=== PATIENT | male | born 2005 | race Caucasian/White ===

== ENCOUNTER 2024-04-08 08:35 | Outpatient (REF) | payer OTHER, SELFPAY ==
[2024-04-08 10:49] LABS: Hematocrit 44.1 % (42.0-52.0); Mean Corpuscular Hemoglobin 28.8 pg (27.0-33.0); Mean Corpuscular Volume 84.6 fL (80.0-98.0); Mean Platelet Volume 9.7 fL (9.4-12.4); Platelet Count 270 X10*3/uL (160-400); Red Blood Count 5.21 X10*6/uL (4.60-5.80); Red Cell Distribution Width 12.7 % (11.0-16.0); White Blood Count 6.8 X10*3/uL (4.8-10.8)
[2024-04-08 11:19] LABS: Alanine Aminotransferase 127 U/L (0-40); Albumin Level 4.6 g/dL (3.5-5.0); Alkaline Phosphatase 87 U/L (39-117); Anion Gap 13 (12-20); Aspartate Amino Transferase 50 U/L (5-37); Bilirubin Total 0.8 mg/dL (0.0-1.0); Blood Urea Nitrogen 12 mg/dL (9-16); Calcium 9.8 mg/dL (8.4-10.2); Carbon Dioxide 24 mmol/L (22-29); Chloride 106 mmol/L (96-108); Estimated Glomerular Filt Rate > 60; Glucose Fasting 90 mg/dL (60-99); Potassium 4.3 mmol/L (3.3-5.1); Sodium 139 mmol/L (135-145); Total Protein 7.6 g/dL (6.5-8.0)
== END 2024-04-08 08:36 | disposition home or self-care (01) ==
LOC: HO.LAB 08:35
PROVIDERS: PCP Physician Assistant; Visit Provider Physician Assistant
DX: Z13.1 Encounter for screening for diabetes mellitus (principal); F90.9 Attention-deficit hyperactivity disorder, unspecified type; E66.813 Obesity, class 3; F84.0 Autistic disorder; Z23 Encounter for immunization
CPT/HCPCS: 36415; 80053; 85027; 90471; 90656; 96127

== ENCOUNTER 2024-04-08 08:35 | Outpatient (AMB) | payer OTHER, SELFPAY ==
--- NOTE | 2024-04-08 08:54 | MHC.PC.OV ---
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 Transferring care from Jasvir Mares ([facility] of [facility]. Medical records have not been requested and have not received. 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 Patient has previous PCP was at a pediatrics office. Patient has a past medical history significant for ADHD, autism spectrum disorder, seasonal allergies and obesity. Currently working at a local [employer] and plans on getting into [employer] HC seeing ADHD: Was treated for ADHD as a child though felt it was not effective form over time. He feel is able to handle his inattentiveness on his own. Class 3 obesity: He does understand his BMI is over 40 will work on being more physically active and adapting to better eating habits to reduce his weight [facility] Medical History (Updated 04/08/24 @ 13:30 by Josh Calderon PA-C) ADHD Surgical History No pertinent past surgical history Social History (Updated 04/08/24 @ 09:29 by Josh Calderon PA-C) Housing: House Alcohol intake: never Patient Tobacco Use Status: Never used Tobacco e-Cigarette/Vaping Use: Never Used Second Hand Smoke Exposure: No service: No Current occupational status: employed and student Current occupation: [employer]- Looking to go to [employer] Cognitive needs: No Hearing needs: No Vision needs: No Questionnaire PHQ-9 Over the last 2 weeks, how often have you been bothered by any of the following problems? 1. Little interest or pleasure in doing things: not at all 2. Feeling down, depressed, or hopeless: not at all 3. Trouble falling or staying asleep, or sleeping too much: not at all 4. Feeling tired or having little energy: not at all 5. Poor appetite or overeating: several days 6. Feeling bad about yourself - or that you are a failure or have let yourself or your family down: not at all 7. Trouble concentrating on things, such as reading the newspaper or watching television: not at all 8. Moving or speaking so slowly that other people could have noticed. Or the opposite - being so fidgety or restless that you have been moving around a lot more than usual: not at all 9. Thoughts that you would be better off or of hurting yourself in some way: not at all Total score: 1 Depression Screening Interpretation: Positive Depression Screening Done: Yes Source: Developed by Drs. Bipin Healy, Marj Maynard, Philippe Arias and colleagues, with an educational aj from [employer]. Thrive Questionnaire Date Thrive assessed: 04/08/24 I am a: Patient What is your living situation today?: I have a steady place to live Within the past 12 months, did the food you bought not last and you didn't have the money to get more?: Never true Within the past 12 months, did you worry whether your food would run out before you got money to buy more?: Never true Do you have trouble paying for medicines?: No Do you have trouble getting transportation to medical appointments?: No Do you have trouble paying your heating and electricity bill?: No Do you have trouble taking care of your child, family member or friend?: No Do you have trouble with day-to-day activities such as bathing, preparing meals, shopping, managing finances, etc.?: No Are you currently unemployed and looking for a job?: No Are you interested in more education?: Yes Please select the resources that you would like help with: None Currently or been in a relationship where the following occur: No concerns reported THRIVE Score: 0 AUDIT C Alcohol Use Questionnaire (AUDIT-C) 1. How often do you have a drink containing alcohol?: Never Total Score: 0 DHARA-7 AMB Questionnaire DHARA-7 Date DHARA - 7 assessed: 04/08/24 Feeling nervous, anxious, or on edge: 0 = Not at all Not being able to stop or control worryin = Not at all Worrying too much about different things: 0 = Not at all Trouble relaxin = Not at all Being so restless that it is hard to sit still: 0 = Not at all Becoming easily annoyed or irritable: 0 = Not at all Feeling afraid as if something awful might happen: 0 = Not at all Total DHARA-7 score (0-4 normal; 5-9 mild; 10-14 moderate; 15-21 severe): 0 Source: Developed by Drs. Bipin Healy, Marj Maynard, Philippe Arias and colleagues, with an educational aj from [employer]. DHARA-7 Assessment Billing DHARA-7 Assessment Tool: DHARA-7 Assessment 93776 Review of Systems Const Denies headache(s) Eyes Denies loss of vision ENT Denies vertigo, Denies dizziness, Denies headache(s) and Denies sore throat Card Denies chest pain, Denies leg edema and Denies lightheadedness Resp Denies cough, Denies hemoptysis and Denies wheezing GI Denies abdominal pain, Denies melena, Denies constipation, Denies diarrhea and Denies vomiting Denies dysuria, Denies urinary frequency and Denies urinary urgency Musc Denies arthralgias, Denies joint swelling, Denies numbness and Denies tingling Neuro Denies Abnormal speech present, Denies behavioral changes, Denies vertigo, Denies dizziness, Denies headache(s), Denies loss of vision, Denies memory loss, Denies numbness and Denies tingling Psych Denies anxiety, Denies behavioral changes, Denies depression, Denies memory loss and Denies panic attacks Bryce/Lymph Denies easy bleeding and Denies easy bruising Aller/Immun Denies wheezing Physical exam (Primary Care) Vital Signs: Last Vital Signs Pulse 97 04/08/24 09:11 BP 130/90 H 04/08/24 09:11 Pulse Ox 98 04/08/24 09:11 Oxygen Delivery Method Room Air 04/08/24 09:11 BMI result Body Mass Index 41.9 BMI Assessment/Plan discussion: High BMI High, discussed plan: lifestyle, weight reduction, dietary and physical activity Tobacco/Smoking Status: Tobacco use Status Tobacco use date assessed 04/08/24 04/08/24 08:56 Patient Tobacco Use Status Never used Tobacco 04/08/24 09:29 e-Cigarette/Vaping Use Never Used 04/08/24 09:29 PHQ-9: PHQ-9 Score PHQ-9: Total score 1 04/08/24 09:36 Depression Screening Interpretation: Positive Thrive Assessment: Date of Thrive Assessment Date Thrive assessed 04/08/24 04/08/24 08:56 Currently or been in a relationship where the following occur: No concerns reported Const General: healthy appearing, no acute distress, alert and awake Nutritional Appearance: well nourished Orientation/consciousness: oriented to person, oriented to place and oriented to time HENMT Ears: TM's normal bilaterally General nose exam: Normal nasal mucous membranes and turbinates present Eyes Conjunctivae: conjunctivae normal Sclerae: sclerae normal Pupils: Equal, round and reactive pupils present Neck Neck: Yes no lymphadenopathy and Yes no JVD Thyroid: Thyroid normal Carotids: no bruits Resp Effort & Inspection: normal respiratory effort and not tachypneic Auscultation: no crackles, no rales, no rhonchi and no wheezes Cardio Rate: regular rate Rhythm: regular rhythm Heart sounds: no murmurs and normal S1 and S2 GI Palpation (GI): Soft to palpation, nontender, no hepatomegaly and no splenomegaly Auscultation: normal bowel sounds Skin General skin exam: no rashes or lesions noted and dry skin Neuro General: oriented to person, oriented to place and oriented to time Cranial nerves: Yes Equal, round and reactive pupils present Speech: No Abnormal speech present Gait exam (Neuro): Normal gait present Motor exam (neuro): no tremor noted Extrem Right upper extremity: full ROM Left upper extremity: full ROM Right lower extremity: full ROM; no edema Left lower extremity: full ROM; no edema Psych Mental Status: mental status grossly normal Speech and movement: Normal speech and movement present Affect: normal affect Attitude: cooperative Thought process: Normal thought process present Office Procedures Flu Questionnaire Does the patient have a severe egg allergy?: No Does the patient have severe life threatening allergies?: No Does the patient have a fever or illness today?: No Has the patient ever had Guillain-Bartley Syndrome?: No Has the patient ever had any past reaction to a flu shot?: No Immunizations Fluarix Triv [id number] (PF) 45 mcg (15 mcg x 3)/0.5 mL IM syringe Performing Provider: Josh Calderon PA-C [facility] Administered by: TIMOTHY Littlejohn on 04/08/24 09:26 Dose Route Admin Location Dispensed Lot Number Expiration Date NDC Evening Anchor 0.5 mL IM Left Deltoid 0.5 mL [id number] 11/29/24 [id number] [employer] VIS Given Date VIS Provided VIS Publication Date 04/08/24 Single Vaccine 21 Eligibility Eligibility Date Funding Source Not [facility] Eligible 04/08/24 Private Coding Level of Care Code New Pt Level 4 (53579) Diagnoses Attention deficit hyperactivity disorder (ADHD), predominantly inattentive type F90.0 Attention deficit-hyperactivity disorder type: predominantly inattentive Screening for diabetes mellitus (DM) Z13.1 Class 3 obesity E66.813 Autism spectrum disorder F84.0 Additional Codes DHARA-7 Assessment Billing - DHARA-7 Assessment Tool: DHARA-7 Assessment 41178 ([id number]) Assessment & Plan Assessment & Plan (1) ADHD: Code(s): F90.9 - Attention-deficit hyperactivity disorder, unspecified type Category: Medical Qualifiers: Attention deficit-hyperactivity disorder type: predominantly inattentive Qualified Code(s): F90.0 - Attention-deficit hyperactivity disorder, predominantly inattentive type Plan: Patient diagnosed with ADHD as a child and was on medication in the past though felt it stopped working. He feels at this point he does not need medication in his doing well without it. (2) Screening for diabetes mellitus (DM): Code(s): Z13.1 - Encounter for screening for diabetes mellitus Category: Medical Plan: As per HPI (3) Class 3 obesity: Code(s): E66.813 - Obesity, class 3 Category: Medical Plan: Patient does understand his BMI is over 40 will work on being more physically active and adapting to better eating habits to reduce his weight (4) Autism spectrum disorder: Code(s): F84.0 - Autistic disorder Category: Medical Plan: As per HPI, seems to be fairly high functioning. Continues to have a job at a local [employer]. He plans on going into [employer] Orders: Orders [facility]. Panel Fast Today Z13.1 - Encounter for screening for diabetes mellitus Influenza [id number] Immunization Today Z23 - Encounter for immunization Complete Blood Count no Diff Today Z13.1 - Encounter for screening for diabetes mellitus
[2024-04-08 09:11] VITALS: BP 130/90; PULSE 97; O2SAT 98; BMI 41.9
== END 2024-04-08 09:36 | disposition home or self-care (01) ==
LOC: HO.HMCH 08:36
PROVIDERS: PCP Physician Assistant; Visit Provider Physician Assistant
DX: F90.0 Attention-deficit hyperactivity disorder, predominantly inattentive type (principal); Z68.41 Body mass index [BMI] 40.0-44.9, adult; E66.813 Obesity, class 3; Z13.1 Encounter for screening for diabetes mellitus; F84.0 Autistic disorder

== ENCOUNTER 2024-04-21 10:13 | Outpatient (REF) | payer OTHER, SELFPAY ==
--- NOTE | ~2024-04-21 | US_ITS ---
EXAMINATION: US ABDOMEN COMPLETE CLINICAL INFORMATION: Elevated liver enzymes. Evaluate for steatosis. COMPARISON: None available. TECHNIQUE: Real-time imaging of the abdominal viscera. FINDINGS: PANCREAS: The visualized pancreatic head and body are unremarkable. The tail is obscured by overlying bowel gas. ABDOMINAL AORTA: The proximal, mid, and distal segments are normal in caliber. INFERIOR VENA CAVA: Visualized portions are normal. LIVER: Enlarged measuring up to 21 cm. The liver contour is normal. Increased hepatic parenchymal echogenicity. No focal hepatic lesion. There is no intrahepatic biliary duct dilatation seen. GALLBLADDER: Unremarkable. The gallbladder is physiologically distended without evidence of stones, sludge, polyps, wall thickening or pericholecystic fluid. COMMON BILE DUCT: Normal in caliber measuring 0.3 cm in diameter. RIGHT KIDNEY: Normal. No hydronephrosis. No renal calculi or focal parenchymal lesions. The kidney measures 11.2 cm in maximum dimension. LEFT KIDNEY: Normal. No hydronephrosis. No renal calculi or focal parenchymal lesions. The kidney measures 11.6 cm in maximum dimension. SPLEEN: Normal. The spleen measures 12.6 cm in maximum dimension. FREE FLUID: None. US/US abdomen complete IMPRESSION: Mild hepatomegaly. Increased hepatic parenchymal echogenicity, which can be seen in the setting of steatosis. Underlying hepatocellular disease cannot be excluded. No hepatic parenchymal lesion or biliary ductal dilatation. Electronically signed by: Ady Perdomo MD 04/21/2024 11:40 AM [facility]
== END 2024-04-21 10:14 | disposition home or self-care (01) ==
LOC: HO.US 10:13
PROVIDERS: PCP Physician Assistant; Visit Provider Physician Assistant
DX: R74.8 Abnormal levels of other serum enzymes (principal)
CPT/HCPCS: 76700

== ENCOUNTER 2024-10-06 13:07 | Outpatient (AMB) | payer OTHER, SELFPAY ==
[2024-10-06 13:17] VITALS: BP 128/90; PULSE 110; TEMP 36.3; O2SAT 98; BMI 42.4
--- NOTE | 2024-10-06 13:17 | MHC.PC.OV ---
Vital Signs 10/06/24 13:17 Height 5 ft 8.5 in Weight 283 lb 4 oz BMI 42.4 BP 128/90 H Blood Pressure Location Lt brachial Position Sitting Pulse 110 H Pulse Source Pulse Oximeter Temp 97.3 F Temp Source Temporal Artery Scan Pulse Oximetry (%) 98 Oxygen Delivery Method Room Air Intake Visit Reasons: PE Intake Note: Patient is here today for a physical. Cash Reconciliation Specialist Required: No Accompanied by: Self / Same As Patient Allergies Seasonal Allergies Allergy (Intermediate, Verified 10/06/24 13:42) Runny Nose Medication List - Last Reconciled 10/06/24 by Josh Calderon PA-C No Known Home Meds Tobacco use date assessed: 10/06/24 Dental Screening Dental Screen Date: 10/06/24 Did you have a dental visit in the last 12 months?: Yes Did you have a dental problem in the last 6 months where you did not have access to dental care?: No Was dental information given to patient?: Patient has dentist HPI PE HPI Details Patient is a 19-year-old male here today for an annual physical. . Patient has a past medical history significant for ADHD, autism spectrum disorder, class 3 obesity, seasonal allergies and obesity. 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 We did do an ultrasound in the fall of 2023 of his abdomen which did show evidence of hepatomegaly and fatty liver disease. Liver enzymes slightly elevated. ADHD: Was treated for ADHD as a child though felt it was not effective form over time. He feel is able to handle his inattentiveness on his own. Class 3 obesity: Does admit to dietary indiscretion over last few months. Has gained weight since last office visit. He does understand his BMI is over 40 will work on being more physically active and adapting to better eating habits to reduce his weight. VAccine: needs up to date Tdap. Otherwise up-to-date with COVID and flu vaccines Laboratory Tests 04/08/24 10:13 Fasting Glucose 90 AST 50 H ALT 127 H PFSH Medical History ADHD Surgical History No pertinent past surgical history Social History Housing: House Alcohol intake: never Patient Tobacco Use Status: Never used Tobacco e-Cigarette/Vaping Use: Never Used Second Hand Smoke Exposure: No service: No Current occupational status: employed and student (Currently at [employer]) Current occupation: [employer] Cognitive needs: No Hearing needs: No Vision needs: No Questionnaire PHQ-9 Over the last 2 weeks, how often have you been bothered by any of the following problems? 1. Little interest or pleasure in doing things: not at all 2. Feeling down, depressed, or hopeless: not at all 3. Trouble falling or staying asleep, or sleeping too much: several days 4. Feeling tired or having little energy: several days 5. Poor appetite or overeating: more than half the days 6. Feeling bad about yourself - or that you are a failure or have let yourself or your family down: not at all 7. Trouble concentrating on things, such as reading the newspaper or watching television: several days 8. Moving or speaking so slowly that other people could have noticed. Or the opposite - being so fidgety or restless that you have been moving around a lot more than usual: several days 9. Thoughts that you would be better off or of hurting yourself in some way: not at all Total score: 6 Depression Screening Interpretation: Positive Depression Screening Follow-up: Existing condition Depression Screening Done: Yes 78375 - PHQ-9 Billing: Yes Source: Developed by Drs. Bipin Healy, Marj Maynard, Philippe Arias and colleagues, with an educational aj from [employer]. Thrive Questionnaire Date Thrive assessed: 10/06/24 I am a: Patient What is your living situation today?: I have a steady place to live Within the past 12 months, did the food you bought not last and you didn't have the money to get more?: Never true Within the past 12 months, did you worry whether your food would run out before you got money to buy more?: Never true Do you have trouble paying for medicines?: No Do you have trouble getting transportation to medical appointments?: No Do you have trouble paying your heating and electricity bill?: No Do you have trouble taking care of your child, family member or friend?: No Do you have trouble with day-to-day activities such as bathing, preparing meals, shopping, managing finances, etc.?: No Are you currently unemployed and looking for a job?: No Are you interested in more education?: Yes Please select the resources that you would like help with: None Currently or been in a relationship where the following occur: No concerns reported THRIVE Score: 0 AUDIT C Alcohol Use Questionnaire (AUDIT-C) 1. How often do you have a drink containing alcohol?: Monthly or less 2. How many drinks containing alcohol do you have on a typical day when you are drinking?: 1 or 2 3. How often do you have six or more drinks on one occasion?: Never Total Score: 1 DHARA-7 AMB Questionnaire DHARA-7 Date DHARA - 7 assessed: 10/06/24 Feeling nervous, anxious, or on edge: 0 = Not at all Not being able to stop or control worryin = Not at all Worrying too much about different things: 0 = Not at all Trouble relaxin = Several days Being so restless that it is hard to sit still: 0 = Not at all Becoming easily annoyed or irritable: 1 = Several days Feeling afraid as if something awful might happen: 0 = Not at all Total DHARA-7 score (0-4 normal; 5-9 mild; 10-14 moderate; 15-21 severe): 2 Source: Developed by Drs. Bipin Healy, Marj Maynard, Philippe Arias and colleagues, with an educational aj from [employer]. DHARA-7 Assessment Billing DHARA-7 Assessment Tool: DHARA-7 Assessment 61501 Review of Systems Const Denies body aches, Denies chills, Denies excessive sweating, Denies fatigue, Denies fever(s) and Denies headache(s) Eyes Denies blurry vision ENT Denies dysphagia, Denies vertigo, Denies dizziness, Denies headache(s), Denies hearing loss and Denies tinnitus Card Denies chest pain, Denies chest pain with activity, Denies syncope, Denies irregular heart rhythm and Denies dyspnea Resp Denies chest congestion, Denies cough, Denies hemoptysis, Denies dyspnea and Denies wheezing GI Denies abdominal pain, Denies melena, Denies hematochezia, Denies coffee ground emesis, Denies dysphagia, Denies diarrhea, Denies nausea and Denies vomiting Denies difficulty urinating, Denies dysuria, Denies urinary frequency, Denies urinary hesitancy and Denies urinary urgency Musc Denies arthralgias, Denies limited range of motion, Denies muscle cramps and Denies muscle weakness Skin/Breast Denies rash and Denies skin ulcer Neuro Denies Abnormal speech present, Denies confusion, Denies vertigo, Denies dizziness, Denies syncope, Denies headache(s), Denies memory loss and Denies seizure-like activity Psych Denies anxiety, Denies confusion, Denies depression, Denies memory loss, Denies panic attacks and Denies paranoia Endo Denies excessive sweating, Denies fatigue, Denies flushing, Denies polydipsia and Denies polyuria Aller/Immun Denies wheezing Physical exam (Primary Care) Vital Signs: Last Vital Signs Temp 97.3 F 10/06/24 13:17 Pulse 110 H 10/06/24 13:17 BP 128/90 H 10/06/24 13:17 Pulse Ox 98 10/06/24 13:17 Oxygen Delivery Method Room Air 10/06/24 13:17 BMI result Body Mass Index 42.4 BMI Assessment/Plan discussion: High BMI High, discussed plan: lifestyle, weight reduction, dietary and physical activity Tobacco/Smoking Status: Tobacco use Status Tobacco use date assessed 10/06/24 10/06/24 13:35 Patient Tobacco Use Status Never used Tobacco 10/06/24 13:17 e-Cigarette/Vaping Use Never Used 10/06/24 13:17 PHQ-9: PHQ-9 Score PHQ-9: Total score 6 10/06/24 13:45 Depression Screening Interpretation: Positive Depression Screening Follow-up: Existing condition Thrive Assessment: Date of Thrive Assessment Date Thrive assessed 10/06/24 10/06/24 13:29 Currently or been in a relationship where the following occur: No concerns reported Const Other: Obese General: cooperative, comfortable, no acute distress, alert and awake; No confusion Orientation/consciousness: oriented to person, oriented to place, patient oriented x3 and No confusion HENMT Head: Yes normocephalic Ears: external ears normal and TM's normal bilaterally Face and sinus: No sinus tenderness Mouth: Normal oral and palatal mucosa present and tongue normal Teeth and gingiva: dentition normal and gingiva normal Throat: Yes posterior oropharynx normal, Yes tonsils normal and Yes uvula midline Eyes Conjunctivae: conjunctivae normal Sclerae: sclerae normal Pupils: Equal, round and reactive pupils present EOM: EOMs intact bilaterally Direct Ophthalmoscopy: No no photophobia Neck Neck: Yes no lymphadenopathy, No tender and Yes no JVD Thyroid: Thyroid normal Carotids: no bruits Chest Chest palpation & inspection: no tenderness Resp Effort & Inspection: normal respiratory effort, no audible wheezes, not labored and no stridor Auscultation: no crackles, no rales, no rhonchi and no wheezes Cardio Jugular venous distension: no JVD Rate: regular rate, not bradycardic and not tachycardic Rhythm: regular rhythm Bruits: no carotid bruits Peripheral pulses: Peripheral pulses 2+ throughout GI Inspection: Yes normal to inspection, No abdominal wall ecchymosis and No visible herniation Palpation (GI): Soft to palpation, nontender, no guarding, not rigid and No hepatosplenomegaly present Auscultation: normoactive bowel sounds General: Yes no CVA tenderness Back/Spine/Pelvis Back: no CVA tenderness and No back tenderness Cervical Spine: cervical ROM normal Thoracic/Lumbar Spine: thoracic and lumbar spine normal to inspection, straight leg raise negative bilaterally, No thoraco-lumbar ROM limited and No lumbar spinal tenderness Skin Lesions: no lesions Rashes: no rashes Wounds: no wounds Neuro General: oriented to person, oriented to place, patient oriented x3, CN's II-XI intact bilaterally and No confusion Cranial nerves: Yes Equal, round and reactive pupils present and Yes Normal accommodation reflex present Cognition (Neuro): normal cognition Speech: No Abnormal speech present Gait exam (Neuro): Normal gait present Motor exam (neuro): 5/5 motor strength present throughout Extrem Right upper extremity: full ROM; no cyanosis Left upper extremity: full ROM; no cyanosis Right lower extremity: no edema Left lower extremity: no edema Psych Appearance: grossly normal Mental Status: mental status grossly normal Affect: normal affect Attitude: cooperative Thought process: Normal thought process present Immunizations Boostrix Tdap 2.5 Lf unit-8 mcg-5 Lf/0.5 mL intramuscular syringe Performing Provider: Josh Calderon PA-C Performing Location: [facility] Administered by: TIMOTHY Littlejohn on 10/06/24 13:54 Dose Route Admin Location Dispensed Lot Number Expiration Date [facility] Machinery Mechanic 0.5 mL IM Left Deltoid 0.5 mL [id number] 01/25/27 31064-822-20 [employer]LA[employer]OSMITH[employer] VIS Given Date VIS Provided VIS Publication Date 10/06/24 Single Vaccine 24 Eligibility Eligibility Date Funding Source Not [facility] Eligible 10/06/24 Private Coding Level of Care Code Est Pt Prev Care 18-39y(39785) Diagnoses Annual physical exam Z00.00 Attention deficit hyperactivity disorder (ADHD), predominantly inattentive type F90.0 Attention deficit-hyperactivity disorder type: predominantly inattentive Class 3 obesity E66.813 Autism spectrum disorder F84.0 Nonalcoholic steatohepatitis (FLORES) K75.81 Mild episode of recurrent major depressive disorder F33.0 Active/Remission status: currently active Depression Type: major depressive disorder Major depression episode severity: mild Major depression recurrence: recurrent Elevated blood pressure reading R03.0 Additional Codes DHARA-7 Assessment Billing - DHARA-7 Assessment Tool: DHARA-7 Assessment 92707 ([id number]) PHQ-9 - 87964 - PHQ-9 Billing: Yes ([id number]) Assessment & Plan Assessment & Plan (1) Annual physical exam: Code(s): Z00.00 - Encounter for general adult medical examination without abnormal findings Category: Medical Plan: As per HPI (2) ADHD: Code(s): F90.9 - Attention-deficit hyperactivity disorder, unspecified type Category: Medical Qualifiers: Attention deficit-hyperactivity disorder type: predominantly inattentive Qualified Code(s): F90.0 - Attention-deficit hyperactivity disorder, predominantly inattentive type Plan: Patient diagnosed with ADHD as a child and was on medication in the past though felt it stopped working. He feels at this point he does not need medication in his doing well without it. (3) Class 3 obesity: Code(s): E66.813 - Obesity, class 3 Category: Medical Plan: Patient does understand his BMI is over 40 will work on being more physically active and adapting to better eating habits to reduce his weight (4) Autism spectrum disorder: Code(s): F84.0 - Autistic disorder Category: Medical Plan: As per HPI, seems to be fairly high functioning. Continues to have a job at a local [employer]. He plans on going into [employer] (5) Nonalcoholic steatohepatitis (FLORES): Code(s): K75.81 - Nonalcoholic steatohepatitis (FLORES) Category: Medical Plan: Recent abdominal ultrasound showing evidence of hepatomegaly and fatty liver. Expressed the importance of weight reduction via dietary means in physical activity and patient does understand and agrees. (6) Depression: Code(s): F32.A - Depression, unspecified Category: Medical Qualifiers: Active/Remission status: currently active Depression Type: major depressive disorder Major depression episode severity: mild Major depression recurrence: recurrent Qualified Code(s): F33.0 - Major depressive disorder, recurrent, mild Plan: Patient's PHQ-9 score positive for mild depression. This seems to have been a existing condition for him. He is not interested in medication or mental health therapy at this time (7) Elevated blood pressure reading: Code(s): R03.0 - Elevated blood-pressure reading, without diagnosis of hypertension Category: Medical Plan: Noted elevated blood pressure readings today in office and at previous office visit. He will work on dietary modifications and being more physically active range of reduce his weight. Will consider antihypertensive medications if blood pressures remain above 140/90 Orders: Orders TDaP Immunization Today Z13.1 - Encounter for screening for diabetes mellitus, Z23 - Encounter for immunization
--- OUTSIDE RECORDS SUMMARY | 2024-10-06 14:20 | XMS_ITS | Encounter Summary ---
Author Organization [facility] Address [address] [place] [address] Phone Care Team Providers Care Open Hearth Furnace Operator Helper Name Role Phone Jasvir Mares MD Primary Care Provider [phone] Encounter Details Date Type Department Care Team (Late st Contact Info) Description 06/05/2009 Documentation [facility] [place] Family Medicine [address] [place], [place] [id number] Family Medicine, Physician [address], [place] [id number] Social History Tobacco Use Types Packs/Day Years Used Date Smoking Tobacco: Never Assessed Sex and Gender Information Value Date Recorded Sex Assigned at Not on file Legal Sex Male 6:09 PM EDT Gender Identity Not on file Sexual Orientation Not on file documented as of this encounter Plan of Treatment Not on file documented as of this encounter Visit Diagnoses Not on filedocumented in this encounter Care Teams Open Hearth Furnace Operator Helper Relationship Specialty Start Date End Date Jasvir Mares MD [address] [place] [address] PCP - General 10/08/17 05/16/24 documented as of this encounter
--- OUTSIDE RECORDS SUMMARY | 2024-10-06 14:20 | XMS_ITS | Encounter Summary ---
Author Organization [facility] Address [address] [place] [address] Phone Care Team Providers Care Pool Hand Name Role Phone Jasvir Mares MD Primary Care Provider [phone] Encounter Details Date Type Department Care Team (Late st Contact Info) Description 10/19/2017 Conversion Encounter [facility] [address] [place] [address] Jasvir Mares MD [address] [place] [address] Social History Tobacco Use Types Packs/Day Years [...] on filedocumented in this encounter Care Teams Pool Hand Relationship Specialty Start Date End Date Jasvir Mares MD [address] [place] [address] PCP - General 10/08/17 05/16/24 documented as of this encounter
--- OUTSIDE RECORDS SUMMARY | 2024-10-06 14:20 | XMS_ITS | Clinical Summary ---
Author Organization [facility] Address [address] [place] [phone] Phone Care Team Providers Care Director Of Financial Reporting Name Role Phone Unavailable Primary Care Provider Unavailabl e Allergies No known active allergies Medications No known medications Active Problems Problem Noted Date Diagnosed Date BMI greater than 95% for age [Z68.54] 08/28/2021 Overview (08/28/2021): Overweight - 05/08; BMI>95%tile 06/11; Seen and endocrine wt clinic 10/11 Assessment & Plan (11/28/2022 2:16 PM EDT): Rec'd to get BMI labs, sent order. Assessment & Plan (08/28/2021 10:41 AM EDT): Will get labs; and addresses and numbers given for BRL Acne vulgaris 12/01/2019 Assessment & Plan (12/01/2019 1:41 PM EDT): Declined acne meds; recheck if worsens ADHD (attention deficit hyperactivity disorder) 04/30/2017 Overview (08/30/2018): 02/08 Assessment & Plan (11/28/2022 2:16 PM EDT): Doing well off meds. Assessment & Plan (08/28/2021 10:36 AM EDT): Continue with meds as doing well Assessment & Plan (10/11/2020 2:50 PM EDT): Doing well on current medications; no changes needed or made. Plan for WCC to be done this summer. Assessment & Plan (12/01/2019 1:14 PM EDT): Continue medications at current dosing. Assessment & Plan (08/31/2018 2:45 PM EDT): Continue current dosing. Assessment & Plan (03/11/2018 2:59 PM EDT): Doing well with medication at current dosing; will plan to recheck at next WC. He showed me his art drawing and are very impressive, encouraged to continue and take some art classes. Pervasive developmental disorder 08/20/2016 Overview (08/30/2018): ?Autistic Spectrum Disorder - 06/07, PDD 02/08, 05/10; Pervasive Developmental Disorder 08/10 Assessment & Plan (12/01/2019 1:14 PM EDT): Continue services at school. Assessment & Plan (08/31/2018 2:45 PM EDT): Continue services and to therapist, mom to call. Resolved Problems Problem Noted Date Diagnosed Date Resolved Date Pediatric body mass index (B MN) of greater than or equal to 95th percentile for age 0308/20/2016 08/28/2021 Assessment & Plan (12/01/2019 1:41 PM EDT): Work on diet and exercise. Will get BMI labs Assessment & Plan (08/31/2018 2:45 PM EDT): Will get labs. Immunizations Immunization Administration Dates Next Due COVID-19 Pfizer, bivalent, 12+ years 11/28/2022 COVID-19 Pfizer, monovalent, 12+ years 2,11/01/2020,10/11/2020 DTaP 05/30/2008, 5,2003,08/31,2003 HPV Vaccine 9 Valent 08/20/2016,08/17/2015,08/15 HPV, Quadrivalent 08/15/2014 Hep A, ped/adol 08/26/2017,08/20/2016 Hep B, ped/adol 02/24/2004,2003,2003 Hib (PRP-T) 09/21/2004, 4,2003,07/06 IPV 05/30/2008, 4,2003,07/06 Influenza 04/20/2007 Influenza, injectable, quadrivalent 02/01,03/01/2010,02/25/2009,04/09 Influenza, injectable, quadr ivalent, preservative free 06/07/2021,04/21/2020,08/20/2016,03/08,06/10/2014,03/04/2013,2003 Influenza, injectable, triva lent, preservative free 03/26/2004,02/24/2004 MMR 05/21/2007,05/04/2004 Meningococcal B Bexsero 11/28/2022 Meningococcal Conj (Menactra) MCV4P 12/01/2019,0 08/15/2014 Pneumococcal Conjugate 09/21/2004,2003,2003,07/06 Tdap 08/15/2014 Varicella 05/21/2007,05/04/2004 Family History Medical History Relation Name Comments Depression Father's Sister Substance abuse Mother No Known Problems Paternal Grandfather Depression Paternal Grandmother Relation Name Status Comments Father Alive ? new onset eliza betes. Father's Sister depression Mother Alive drug-involved, had lost guardianship. now after rehab she is working and has increased visitation. Other Siblings: lisa 2007 half brother. Paternal Grandfather healthy Paternal Grandmother healthy , depression diagnosed with NONPSYCHOT BRAIN SYN NOS Social History Tobacco Use Types Packs/Day Years Used Date Smoking Tobacco: Never Smokeless Tobacco: Never Alcohol Use Standard Drinks/Week Comments Never 0 (1 standard drink = 0.6 oz pur e alcohol) Hunger/Food Answer Date Recorded In the last 12 months, did y ou or your family ever eat less than you felt you should because there wasn't enough money for food? No 11/28/2022 Stable Housing Answer Date Recorded Are you worried that in the next 2 months you may not have stable housing? No 11/28/2022 Transportation Concerns Answer Date Rec orded In the last 12 months, have you or your family ever had to go without healthcare because you didn't have a way to get there? No 11/28/2022 Hazards in Home Answer Date Recorded Think about the place you li ve. Do you have problems with any of the following? Pests (mice or roaches), mold, no/not working smoke detectors, water leaks, no window guards. No 2022 Financing Utilities Answer Date Recorde d In the last 12 months, has t he electric, gas, oil, or water company threatened to shut off your services in your home? No 11/28/2022 Safety at Home Answer Date Recorded Are you or your family worried about feeling saf e in your home? No 11/28/2022 Outside Support Answer Date Recorded Do you feel that you need mo re support from other people or programs to help you care for yourself or your family? No 11/28/2022 Understanding Health Concerns Answer Da te Recorded Do you need help understandi ng your or your child's healthcare needs (diagnosis, medications, plan, etc.)? No 11/28/2022 Financing Health Concerns Answer Date R ecorded In the last 12 months, was t here a time when your child needed to see a doctor or get medications or supplies but could not because of cost? No 11/28/2022 Missing School or Work Answer Date Kranthi rded Did you or your child miss s chool or work because of a health problem that could have been avoided? No 11/28/2022 Sex and Gender Information Value Date Recorded Sex Assigned at Not on file Legal Sex Male 6:09 PM EDT Gender Identity Not on file Sexual Orientation Not on file Last Filed Vital Signs Vital Sign Reading Time Taken Comments Blood Pressure 120/78 11/28/2022 1:57 PM EDT Pulse - - Temperature 36.8 ??C (98.2 ??F) 12/06/2014 12:00 AM E DT Respiratory Rate - - Oxygen Saturation - - Inhaled Oxygen Concentration - - Weight 114 kg (251 lb 9.6 oz) 11/28/2022 1:57 PM EDT Height 174 cm (5' 8.5 ) 11/28/2022 1:57 PM EDT Body Mass Index 37.7 11/28/2022 1:57 PM EDT Plan of Treatment Health Maintenance Due Date Last Done Comments Men B Vaccine (2 of 2 - Bexs ero SCDM 2-dose series) 05/30/2023 11/28/2022 COVID-19 Vaccine (5 - 2023-2 5 season) 2024 11/28/2022, 06/07/2021, 11/01/2020, Additional history exists DTaP,Tdap,and Td Vaccines (7 - Td or Tdap) 08/15/2024 08/15/2014, 05/30/2008, 09/21/2004, Additional history exists Hepatitis B Vaccines Completed 02/24/2004, 2003, 2003 HIB Vaccines Completed 09/21/2004, 11/30, 2003, Additional history exists Pneumococcal Vaccine Completed 09/21/2004, 2003, 2003, Additional history exists MMR Vaccines Completed 05/21/2007, 05/04/2004 Varicella Vaccines Completed 05/21/2007, 05/04/2004 IPV Vaccines Completed 05/30/2008, 02/01, 2003, Additional history exists HPV Vaccines Completed 08/20/2016, 07/31, 08/15/2014, Additional history exists Hepatitis A Vaccines Completed 08/26/2017, 08/21/19 17 Meningococcal Vaccine Completed 12/01/2019, 015 Influenza Vaccines Completed 04/08/2024, 0 06/07/2021, 04/21/2020, Additional history exists [place] [address] [address] [address]
== END 2024-10-06 13:54 | disposition home or self-care (01) ==
LOC: HO.HMCH 13:08
PROVIDERS: PCP Physician Assistant; Visit Provider Physician Assistant
DX: Z00.00 Encounter for general adult medical examination without abnormal findings (principal); F90.0 Attention-deficit hyperactivity disorder, predominantly inattentive type; E66.813 Obesity, class 3; Z68.41 Body mass index [BMI] 40.0-44.9, adult; F84.0 Autistic disorder; K75.81 Nonalcoholic steatohepatitis (NASH); F33.0 Major depressive disorder, recurrent, mild; R03.0 Elevated blood-pressure reading, without diagnosis of hypertension; Z23 Encounter for immunization; Z13.1 Encounter for screening for diabetes mellitus

== ENCOUNTER → 2024-10-06 13:07 | Outpatient (BNVA) | payer OTHER, SELFPAY | PROVIDERS: PCP Physician Assistant; Visit Provider Physician Assistant | DX: Z00.00 Encounter for general adult medical examination without abnormal findings (principal); Z23 Encounter for immunization; F90.0 Attention-deficit hyperactivity disorder, predominantly inattentive type; E66.813 Obesity, class 3; Z68.41 Body mass index [BMI] 40.0-44.9, adult; F84.0 Autistic disorder; K75.81 Nonalcoholic steatohepatitis (NASH); F33.0 Major depressive disorder, recurrent, mild; R03.0 Elevated blood-pressure reading, without diagnosis of hypertension | CPT/HCPCS: 90471; 90715; 96127 ==

== ENCOUNTER 2025-04-06 14:16 | Outpatient (AMB) | payer OTHER, SELFPAY ==
--- NOTE | 2025-04-06 14:19 | MHC.PC.OV ---
Vital Signs 04/06/25 14:20 Height 5 ft 8.5 in Weight 298 lb 8 oz BMI 44.7 BP 138/92 H Blood Pressure Location Lt brachial Position Sitting Pulse 105 H Pulse Source Pulse Oximeter Temp 97.5 F Temp Source Temporal Artery Scan Pulse Oximetry (%) 97 Oxygen Delivery Method Room Air Intake Visit Reasons: f/u weight check/ FLORES Allergies Seasonal Allergies Allergy (Intermediate, Verified 04/06/25 14:26) Runny Nose Medication List - Last Reconciled 04/06/25 by Josh Calderon PA-C No Known Home Meds Tobacco use date assessed: 04/06/25 Dental Screening Dental Screen Date: 04/06/25 Did you have a dental visit in the last 12 months?: Yes Did you have a dental problem in the last 6 months where you did not have access to dental care?: No Was dental information given to patient?: Patient has dentist HPI f/u weight check/ FLORES HPI Details Patient is a 19-year-old male here today for a follow-up visit. . 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 We did do an ultrasound in the fall of 2023 of his abdomen which did show-->Mild hepatomegaly. Increased hepatic parenchymal echogenicity, which can be seen in the setting of steatosis. Underlying hepatocellular disease cannot be excluded. No hepatic parenchymal lesion or biliary ductal dilatation. Class 3 obesity: Does admit to dietary indiscretion over last few months. He reports he has cut down on his soda intake though does have a lot of carbohydrates in his diet.. Unfortunately gained weight since last office visit. He does understand his BMI is over 40 will work on being more physically active and adapting to better eating habits to reduce his weight. Laboratory Tests 04/08/24 10:13 Plt Count 270 AST 50 H ALT 127 H PFSH Medical History ADHD Surgical History No pertinent past surgical history Social History Housing: House Alcohol intake: never Patient Tobacco Use Status: Never used Tobacco e-Cigarette/Vaping Use: Never Used Second Hand Smoke Exposure: No service: No Current occupational status: employed and student (Currently at [employer]) Current occupation: [employer] Cognitive needs: No Hearing needs: No Vision needs: No Questionnaire PHQ-9 Over the last 2 weeks, how often have you been bothered by any of the following problems? 1. Little interest or pleasure in doing things: not at all 2. Feeling down, depressed, or hopeless: not at all 3. Trouble falling or staying asleep, or sleeping too much: several days 4. Feeling tired or having little energy: several days 5. Poor appetite or overeating: more than half the days 6. Feeling bad about yourself - or that you are a failure or have let yourself or your family down: not at all 7. Trouble concentrating on things, such as reading the newspaper or watching television: several days 8. Moving or speaking so slowly that other people could have noticed. Or the opposite - being so fidgety or restless that you have been moving around a lot more than usual: several days 9. Thoughts that you would be better off or of hurting yourself in some way: not at all Total score: 6 Depression Screening Interpretation: Positive Depression Screening Follow-up: Existing condition Depression Screening Done: Yes 43675 - PHQ-9 Billing: Yes Source: Developed by Drs. Bipin Healy, Marj Maynard, Philippe Arias and colleagues, with an educational aj from [employer]. Thrive Questionnaire Date Thrive assessed: 10/06/24 I am a: Patient What is your living situation today?: I have a steady place to live Within the past 12 months, did the food you bought not last and you didn't have the money to get more?: Never true Within the past 12 months, did you worry whether your food would run out before you got money to buy more?: Never true Do you have trouble paying for medicines?: No Do you have trouble getting transportation to medical appointments?: No Do you have trouble paying your heating and electricity bill?: No Do you have trouble taking care of your child, family member or friend?: No Do you have trouble with day-to-day activities such as bathing, preparing meals, shopping, managing finances, etc.?: No Are you currently unemployed and looking for a job?: No Are you interested in more education?: Yes Please select the resources that you would like help with: None Currently or been in a relationship where the following occur: No concerns reported THRIVE Score: 0 AUDIT C Alcohol Use Questionnaire (AUDIT-C) 1. How often do you have a drink containing alcohol?: Monthly or less 2. How many drinks containing alcohol do you have on a typical day when you are drinking?: 1 or 2 3. How often do you have six or more drinks on one occasion?: Never Total Score: 1 DHARA-7 AMB Questionnaire DHAAR-7 Date DHARA - 7 assessed: 10/06/24 Feeling nervous, anxious, or on edge: 0 = Not at all Not being able to stop or control worryin = Not at all Worrying too much about different things: 0 = Not at all Trouble relaxin = Several days Being so restless that it is hard to sit still: 0 = Not at all Becoming easily annoyed or irritable: 1 = Several days Feeling afraid as if something awful might happen: 0 = Not at all Total DHARA-7 score (0-4 normal; 5-9 mild; 10-14 moderate; 15-21 severe): 2 Source: Developed by Drs. Bipin Healy, Marj Maynard, Philippe Arias and colleagues, with an educational aj from [employer]. Review of Systems Const Denies headache(s) Eyes Denies loss of vision ENT Denies vertigo, Denies dizziness, Denies headache(s) and Denies sore throat Card Denies chest pain, Denies leg edema and Denies lightheadedness Resp Denies cough, Denies hemoptysis and Denies wheezing GI Denies abdominal pain, Denies melena, Denies constipation, Denies diarrhea and Denies vomiting Denies dysuria, Denies urinary frequency and Denies urinary urgency Musc Denies arthralgias, Denies joint swelling, Denies numbness and Denies tingling Neuro Denies Abnormal speech present, Denies behavioral changes, Denies vertigo, Denies dizziness, Denies headache(s), Denies loss of vision, Denies memory loss, Denies numbness and Denies tingling Psych Denies anxiety, Denies behavioral changes, Denies depression, Denies memory loss and Denies panic attacks Bryce/Lymph Denies easy bleeding and Denies easy bruising Aller/Immun Denies wheezing Physical exam (Primary Care) Vital Signs: Last Vital Signs Temp 97.5 F 04/06/25 14:20 Pulse 105 H 04/06/25 14:20 BP 138/92 H 04/06/25 14:20 Pulse Ox 97 04/06/25 14:20 Oxygen Delivery Method Room Air 04/06/25 14:20 BMI result Body Mass Index 44.7 Tobacco/Smoking Status: Tobacco use Status Tobacco use date assessed 04/06/25 04/06/25 14:23 Patient Tobacco Use Status Never used Tobacco 04/06/25 14:23 e-Cigarette/Vaping Use Never Used 04/06/25 14:23 PHQ-9: PHQ-9 Score PHQ-9: Total score 6 04/06/25 14:37 Depression Screening Interpretation: Positive Depression Screening Follow-up: Existing condition Thrive Assessment: Date of Thrive Assessment Date Thrive assessed 10/06/24 04/06/25 14:23 Currently or been in a relationship where the following occur: No concerns reported Const General: healthy appearing, no acute distress, alert and awake Nutritional Appearance: well nourished Orientation/consciousness: oriented to person, oriented to place and oriented to time HENMT Ears: TM's normal bilaterally General nose exam: Normal nasal mucous membranes and turbinates present Eyes Conjunctivae: conjunctivae normal Sclerae: sclerae normal Pupils: Equal, round and reactive pupils present Neck Neck: Yes no lymphadenopathy and Yes no JVD Thyroid: Thyroid normal Carotids: no bruits Resp Effort & Inspection: normal respiratory effort and not tachypneic Auscultation: no crackles, no rales, no rhonchi and no wheezes Cardio Rate: regular rate Rhythm: regular rhythm Heart sounds: no murmurs and normal S1 and S2 GI Palpation (GI): Soft to palpation, nontender, no hepatomegaly and no splenomegaly Auscultation: normal bowel sounds Skin General skin exam: no rashes or lesions noted and dry skin Neuro General: oriented to person, oriented to place and oriented to time Cranial nerves: Yes Equal, round and reactive pupils present Speech: No Abnormal speech present Gait exam (Neuro): Normal gait present Motor exam (neuro): no tremor noted Extrem Right upper extremity: full ROM Left upper extremity: full ROM Right lower extremity: full ROM; no edema Left lower extremity: full ROM; no edema Psych Mental Status: mental status grossly normal Speech and movement: Normal speech and movement present Affect: normal affect Attitude: cooperative Thought process: Normal thought process present Office Procedures Flu Questionnaire Does the patient have a severe egg allergy?: No Does the patient have severe life threatening allergies?: No Does the patient have a fever or illness today?: No Has the patient ever had Guillain-[place] Syndrome?: No Has the patient ever had any past reaction to a flu shot?: No Immunizations Fluarix [id number] (PF) 45 mcg (15 mcg x 3)/0.5 mL IM syringe Performing Provider: Josh Calderon PA-C [facility] [place] [facility] Administered by: Camila Oliva CMA on 04/06/25 14:38 Dose Route Admin Location Dispensed Lot Number Expiration Date [facility] 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 0.5 mL IM Left Deltoid 0.5 mL [id number] 11/29/25 21800-054-58 Tomorrow VIS Given Date VIS Provided VIS Publication Date 04/06/25 Single Vaccine 24 Eligibility Eligibility Date Funding Source Not [facility] Eligible 04/06/25 Private Coding Level of Care Code Est Pt Level 4 (57870) Diagnoses Class 3 obesity E66.813 Nonalcoholic steatohepatitis (FLORES) K75.81 Additional Codes PHQ-9 - 93341 - PHQ-9 Billing: Yes ([id number]) Assessment & Plan Assessment & Plan (1) Class 3 obesity: Code(s): E66.813 - Obesity, class 3 Category: Medical Plan: Patient does understand his BMI is over 40 will work on being more physically active and adapting to better eating habits to reduce his weight (2) Nonalcoholic steatohepatitis (FLORES): Code(s): K75.81 - Nonalcoholic steatohepatitis (FLORES) Category: Medical Plan: Recent abdominal ultrasound showing evidence of hepatomegaly and fatty liver. Unfortunately gained weight since last office visit. He is interested in speaking to a dietitian about a diet plan. Expressed the importance of weight reduction via dietary means in physical activity and patient does understand and agrees. Orders: Orders Complete Blood Count no Diff Today K75.81 - Nonalcoholic steatohepatitis (FLORES) Liver Fibrosis Pnl Today K75.81 - Nonalcoholic steatohepatitis (FLORES) Comprehensive [place]. Panel Fast Today K75.81 - Nonalcoholic steatohepatitis (FLORES) Influenza [id number] Immunization Today Z23 - Encounter for immunization Referrals Nutrition/Dietitian Referral E66.813 - Obesity, class 3, K75.81 - Nonalcoholic steatohepatitis (FLORES)
[2025-04-06 14:20] VITALS: BP 138/92; PULSE 105; TEMP 36.4; O2SAT 97; BMI 44.7
--- OUTSIDE RECORDS SUMMARY | 2025-04-06 17:30 | XMS_ITS | Encounter Summary ---
Author Organization [facility] Address [address] [place] [id number] Phone Care Team Providers Care Traditional Maori Health Practitioner Name Role Phone Jasvir Mares MD Primary Care Provider [phone] Encounter Details Date Type Department Care Team (Late st Contact Info) Description 06/05/2009 Documentation [facility] Family Medicine [address] [place], [place] [id number] Family Medicine, Physician [address] [place], [place] [id number] Social History Tobacco Use Types Packs/Day Years [...] on filedocumented in this encounter Care Teams Traditional Maori Health Practitioner Relationship Specialty Start Date End Date Jasvir Mares MD [address] [place] [address] PCP - General 10/08/17 05/16/24 documented as of this encounter
--- OUTSIDE RECORDS SUMMARY | 2025-04-06 17:30 | XMS_ITS | Clinical Summary ---
Author Organization [facility] Address [address] [place] [phone] Phone Care Team Providers Care Electronics Department Manager Name Role Phone Unavailable Primary Care Provider [...] Resolved Date Pediatric body mass index (B [place]) of greater than or equal to 95th [...] PM EDT Pulse - - Temperature 36.8 C (98.2 F) 12/06/2014 12:00 AM EDT Respiratory Rate - - Oxygen Saturation - [...] Bexs ero SCDM 2-dose series) 05/30/2023 11/28/2022 DTaP,Tdap,and Td Vaccines (7 - Td or Tdap) 08/15/2024 08/15/2014, 05/30/2008, 09/21/2004, Additional history exists Influenza Vaccines (#1) 2024 04/08/20, 06/07/2021, 04/21/2020, Additional history exists COVID-19 Vaccine (2024-2 6 season) 2025 11/28/2022, 06/07/2021, 11/01/2020, Additional history exists Hepatitis B Vaccines Completed [...] 08/21/19 17 Meningococcal Vaccine Completed 12/01/2019, 015 Insurance [facility]
--- OUTSIDE RECORDS SUMMARY | 2025-04-06 17:30 | XMS_ITS | Encounter Summary ---
Author Organization [facility] Address [address] [place] [phone] Phone Care Team Providers Care Land Acquisition Specialist Name Role Phone Jasvir Mares MD Primary Care Provider [phone] Encounter Details Date Type Department Care Team (Late st Contact Info) Description 10/19/2017 Conversion Encounter [facility] [address] [place] [address] Jasvir Mares MD [address] [place] [address] Social History Tobacco Use Types Packs/Day Years [...] on filedocumented in this encounter Care Teams Land Acquisition Specialist Relationship Specialty Start Date End Date Jasvir Mares MD [address] [place] [address] PCP - General 10/08/17 05/16/24 documented as of this encounter
== END 2025-04-06 14:40 | disposition home or self-care (01) ==
LOC: HO.HMCH 14:17
PROVIDERS: PCP Physician Assistant; Visit Provider Physician Assistant
DX: E66.813 Obesity, class 3 (principal); Z68.41 Body mass index [BMI] 40.0-44.9, adult; K75.81 Nonalcoholic steatohepatitis (NASH); Z23 Encounter for immunization

== ENCOUNTER → 2025-04-06 14:16 | Outpatient (BNVA) | payer OTHER, SELFPAY | PROVIDERS: PCP Physician Assistant; Visit Provider Physician Assistant | DX: E66.813 Obesity, class 3 (principal); K75.81 Nonalcoholic steatohepatitis (NASH); F90.9 Attention-deficit hyperactivity disorder, unspecified type; F84.0 Autistic disorder; Z23 Encounter for immunization; Z68.41 Body mass index [BMI] 40.0-44.9, adult | CPT/HCPCS: 90471; 90656; 96127 ==